=== PATIENT | female | born 1980 | race Caucasian/White ===

== ENCOUNTER 2017-08-29 18:53 | Emergency (ER) | payer MEDICAID ==
[2017-08-29 19:27] VITALS: BP 121/61
--- NOTE | 2017-08-29 19:35 | UC ---
Headache HPI - HPI Summary HPI Summary: 36 YEAR OLD FEMALE PRESENTS WITH SINUS HEADACHE. - History Of Current Complaint Chief Complaint: UCHeadache Stated Complaint: HEADACHE Time Seen by Provider: 08/29/17 19:29 Hx Obtained From: Patient Onset/Duration: Sudden Onset Onset Of Symptoms: Sudden Pain Scale Used: 0-10 Numeric - 5 - Allergies/Home Medications Allergies/Adverse Reactions: Allergies Allergy/AdvReac Type Severity Reaction Status Date / Time Amoxicillin Allergy Rash Verified 08/29/17 19:24 PMH/Surg Hx/FS Hx/Imm Hx - Surgical History Surgical History: Yes Surgery Procedure, Year, and Place: tubal - Social History Alcohol Use: Rare Substance Use Type: None Smoking Status (MU): Never Smoked Tobacco Review of Systems Skin: Negative Eyes: Negative ENT: Negative, Sinus Pain/Tenderness Respiratory: Negative Cardiovascular: Negative Gastrointestinal: Negative Genitourinary: Negative Motor: Negative Neurovascular: Negative Musculoskeletal: Negative Neurological: Headache All Other Systems Reviewed And Are Negative: Yes Physical Exam Triage Information Reviewed: Yes Appearance: Well-Appearing Vital Signs: Initial Vital Signs Temp 36.1 C 08/29/17 19:25 Pulse 64 08/29/17 19:25 Resp 16 08/29/17 19:25 BP 121/61 08/29/17 19:25 Pulse Ox 100 08/29/17 19:25 Eye Exam: Normal ENT: Positive: Nasal congestion Dental Exam: Normal Neck exam: Normal Neck: Positive: 1 Respiratory Exam: Normal Cardiovascular Exam: Normal Abdominal Exam: Normal Musculoskeletal Exam: Normal Neurological Exam: Normal Psychological Exam: Normal Skin Exam: Normal Headache Course/Dx - Differential Dx/Diagnosis Provider Diagnoses: SINUSITIS Discharge - Discharge Plan Condition: Stable Disposition: HOME Prescriptions: Pseudoephedrine HCl [Sudafed Nasal Decongestan] 30 mg PO Q8H #100 tab Patient Education Materials: Acute Headache (ED) Referrals: Mehnaz DESAI,Alexandria Vincent [Nurse Practitioner] -
[2017-08-29] MEDS ORDERED: Acetaminophen TAB* 325 MG PO ONE (19:36)
== END 2017-08-29 20:00 | disposition home or self-care (01) ==
LOC: UCEAST 18:53
DX: J32.9 Chronic sinusitis, unspecified (principal); Z88.3 Allergy status to other anti-infective agents
CPT/HCPCS: 99212; A9270-GY; G0463

== ENCOUNTER 2018-02-11 18:02 | Emergency (ER) | payer MEDICAID ==
[2018-02-11 18:31] VITALS: BP 155/112
--- NOTE | 2018-02-11 19:10 | UC ---
Hip/Pelvis Pain - HPI Summary HPI Summary: Woke in the middle of the night with R hip pain, had a hard time getting comfortable. Got worse while at work today, now ok. Denies any known trauma, no past surgery or injury. Was bowling last night as normal, but felt no pain while bowling. Bearing weight normally. - History Of Current Complaint Chief Complaint: UCLowerExtremity Stated Complaint: HIP PAIN Time Seen by Provider: 02/11/18 18:41 Hx Obtained From: Patient Hx Last Menstrual Period: 01/03/18 ?: No Onset/Duration: Sudden Onset, Lasting Hours Timing: Constant Severity Initially: Moderate Severity Currently: Moderate Pain Intensity: 9 Location: Discrete At: Character Of Pain: Dull, Aching Aggravating Factor(s): Movement, Other - lying on R side Alleviating Factor(s): Rest, Position Associated Signs And Symptoms: Positive: Negative - Allergies/Home Medications Allergies/Adverse Reactions: Allergies Allergy/AdvReac Type Severity Reaction Status Date / Time amoxicillin Allergy Rash Verified 02/11/18 18:31 Home Medications: Home Medications Cyanocobalamin TAB* [Vitamin B12 TAB*] 500 mcg PO DAILY 02/11/18 [History Confirmed 02/11/18] PMH/Surg Hx/FS Hx/Imm Hx Previously Healthy: Yes - Surgical History Surgical History: Yes Surgery Procedure, Year, and Place: tubal ligation - Family History Known Family History: Negative: Blood Disorder - Social History Occupation: Employed Full-time Alcohol Use: Occasionally Substance Use Type: None Smoking Status (MU): Never Smoked Tobacco Review of Systems Constitutional: Negative Skin: Negative Eyes: Negative ENT: Negative Respiratory: Negative Cardiovascular: Negative Gastrointestinal: Negative Genitourinary: Negative Motor: Negative Neurovascular: Negative Musculoskeletal: Decreased ROM - R hip Neurological: Negative Psychological: Negative Is Patient Immunocompromised?: No All Other Systems Reviewed And Are Negative: Yes Physical Exam Triage Information Reviewed: Yes Appearance: Well-Appearing, Pain Distress - mild Vital Signs: Initial Vital Signs Temp 98.8 F 02/11/18 18:28 Pulse 91 02/11/18 18:28 Resp 16 02/11/18 18:28 BP 155/112 02/11/18 18:28 Pulse Ox 100 02/11/18 18:28 Vital Signs Reviewed: Yes Eye Exam: Normal Eyes: Positive: Conjunctiva Clear ENT Exam: Normal ENT: Positive: Normal ENT inspection, Hearing grossly normal, Pharynx normal, TMs normal Neck exam: Normal Neck: Positive: Supple, Nontender, No Lymphadenopathy Respiratory Exam: Normal Respiratory: Positive: Chest non-tender, Lungs clear, Normal breath sounds, No respiratory distress, No accessory muscle use Cardiovascular Exam: Normal Cardiovascular: Positive: RRR, No Murmur Musculoskeletal: Positive: ROM Limited @ - R hip, Other: - pain over R trochanteric tuberosity Neurological Exam: Normal Neurological: Positive: Alert Psychological Exam: Normal Skin Exam: Normal Hip Injury Course/Dx - Differential Dx/Diagnosis Provider Diagnoses: R hip bursitis Discharge - Discharge Plan Condition: Stable Disposition: HOME Patient Education Materials: Hip Bursitis (ED) Forms: *Work Release Referrals: Shruthi Keenan MD [Medical Doctor] - 1 Week Additional Instructions: Start taking ibuprofen 600mg 3 times per day to help with pain while you wait for your orthopedic appointment.
== END 2018-02-11 19:11 | disposition home or self-care (01) ==
LOC: UCEAST 18:02
DX: M70.61 Trochanteric bursitis, right hip (principal); Y93.9 Activity, unspecified; Z88.1 Allergy status to other antibiotic agents
CPT/HCPCS: 99211; G0463

== ENCOUNTER 2019-10-04 15:27 | Emergency (ER) | payer BC, OTHER ==
--- OUTSIDE RECORDS SUMMARY | 2019-10-04 15:36 | XMS REPORT | Summary of Care ---
:1980 Author Organization [facility] Address [address] [address] Care Team Providers Name Role Phone Sabina Santiago MD Primary Care Provider Reason for Referral MRI/CAT/PET Scan (Routine) Status Reason Specialty Diagnoses / Referred By Referred To Procedures Contact Contact Pending Review Diagnoses Neck mass [place], Procedures US SOFT TISSUE HEAD NECK ULTRASOUND GISELLE Bustamante [address] [place] [address] Reason for Visit Reason Comments Sore Throat several weeks of sore throat, coughing, no fever Encounter Details Date Type Department Care Team Description 08/22/2019 Office Visit Dianna Rea, Seasonal allergic rhinitis, unspecified trigger (Primary Dx); Practice [employer] Neck mass [address] [facility] [address] [place] [address] [place] [address] [phone] Allergies Active Allergy Reactions Severity Noted Date Comments Penicillins Rash 10/09/2017 Amoxicillin documented as of this encounter (statuses as of 08/22/2019) Medications Medication Sig Dispensed Refills Start Date End Date Status loratadine Take 1 Tab 30 Tab 0 08/22/2019 Active (CLARITIN,ALAVERT by mouth ) 10 MG Oral DAILY. TabIndications: Seasonal allergic rhinitis, unspecified trigger fluticasone [place] 2 1 Bottle 2 08/22/2019 Active (FLONASE) 50 Sprays in MCG/ACT Nasal nose DAILY. SuspensionIndicat ions: Seasonal allergic rhinitis, unspecified trigger fluticasone [place] 2 1 Each 0 01/06/2019 08/22/2019 Discontinued (FLONASE) 50 Sprays in (Reorder) MCG/ACT Nasal nose DAILY. Suspension documented as of this encounter (statuses as of 08/22/2019) Active Problems Problem Noted Date Mixed hyperlipidemia 10/09/2017 B12 deficiency 10/09/2017 FH: CAD (coronary artery disease) 10/09/2017 documented as of this encounter (statuses as of 08/22/2019) Immunizations Name Administration Dates Next Due Influenza (IM) Preservative Free 08/26/2018, 09/08/2017 TDAP Vaccine 11/26/2011 documented as of this encounter Social History Tobacco Use Types Packs/Day Years Used Date Never Smoker Smokeless Tobacco: Never Used Alcohol Use Drinks/Week oz/Week Comments Yes rarely Physical Activity Answer Date Recorded On average, how many days per week do you engage in moderate 2 days 2018 to strenuous exercise (like walking fast, running, jogging, dancing, swimming, biking, or other activities that cause a light or heavy sweat)? On average, how many minutes do you engage in exercise at Not asked this level? Stress Answer Date Recorded Do you feel stress - tense, restless, nervous, or anxious, Rather much 2018 or unable to sleep at night because your mind is troubled all the time - these days? Sex Assigned at Date Recorded Not on file Job Start Date Occupation Industry Not on file Not on file Not on file Travel History Travel Start Travel End No recent travel history available. documented as of this encounter Last Filed Vital Signs Vital Sign Reading Time Taken Comments Blood Pressure 110/64 08/22/2019 2:22 PM EDT Pulse 76 08/22/2019 2:22 PM EDT Temperature 36.8 08/22/2019 2:22 PM EDT C (98.3 F) Respiratory Rate - - Oxygen Saturation 99% 08/22/2019 2:22 PM EDT Inhaled Oxygen Concentration - - Weight 85.3 kg (188 lb) 08/22/2019 2:22 PM EDT Height 162.6 cm (5' 4") 08/22/2019 2:22 PM EDT Body Mass Index 32.27 08/22/2019 2:22 PM EDT documented in this encounter Patient Instructions Patient InstructionsDianna Mason NP - 08/22/2019 2:20 PM EDTSchedule the ultrasound of your neck - I will call you with anything abnormal, otherwise I will senda letter to you. Use the flonase daily - 2 sprays in each nostril every day. Start loratadine 10 mg daily. Try this for 3-4 weeks, if still having problems, please return. Set up your humidifier - make sure to keep it clean. Salt water gargles, hot tea with lemon. If swelling in throat causes any difficulty breathing, go to the ER. documented in this encounter Progress Notes Dianna Mason NP - 08/22/2019 2:20 PM EDT PATIENT: Carolyn Barroso : 1980 DATE OF SERVICE: 08/22/2019 CHIEF COMPLAINT: Chief Complaint Patient presents with Sore Throat several weeks of sore throat, coughing, no fever Subjective HISTORY OF PRESENT ILLNESS: Carolyn Barroso is a 38-y.o. female. Sore throat since 07/27/19 - thought it was seasonal changes, used her flonase, thought maybe it helped with congestion but sore throat is not going away and she still has cough but this is minimal and usually when her throat feels scratchy, worse in am then during the day, using cough drops. The last couple of days she feels like the back of her tongue hurts when she moves it or sticks it out, today it feels like she has something caught in her throat. Something maybe swollen. Worse on left side.Like something stuck in throat. No fevers, congestion is gone - feels that was allergies -, no myalgia or arthralgias, no constitutional symptoms, no malaise. She used her phone to look in her throat and feels it "doesn't look right". No difficulty swallowing - maybe last night and this am with breakfast a bit more difficult than normal. Not more painful to swallow, food isn't getting stuck. Nothing aggravates, nothing alleviates - more scratchy at night as temperature drops (not related tolaying down) worse in the am as well, when not drinking for awhile it is worse. She had scratchy throat last year and a humidifier helped but last year did not have pain or the swollen spot in throat. She has chronic allergies especially around this time of year when the weather changes. She does not take medication for this, will use flonase sporadically on an as needed basis. Past Medical History: Diagnosis Date Allergic rhinitis Vitamin B12 deficiency Family History Problem Relation Age of Onset No Known Problems Mother No Known Problems Father No Known Problems Daughter No Known Problems Son No Known Problems Brother Heart Paternal Grandfather [place] Heart Paternal Aunt 50 [place] Heart Paternal Uncle 60 [place] Current Outpatient Medications Medication Sig fluticasone (FLONASE) 50 MCG/ACT Nasal Suspension [place] 2 Sprays in nose DAILY. loratadine (CLARITIN,ALAVERT) 10 MG Oral Tab Take 1 Tab by mouth DAILY. No current facility-administered medications for this visit. Allergies Allergen Reactions Penicillins Rash Amoxicillin Social History Socioeconomic History Marital status: Spouse name: Not on file Number of children: Not on file Years of education: Not on file Highest education level: Not on file Occupational History Not on file Social Needs Financial resource strain: Not on file Food insecurity: Worry: Not on file Inability: Not on file Transportation needs: Medical: Not on file Non-medical: Not on file Tobacco Use Smoking status: Never Smoker Smokeless tobacco: Never Used Substance and Sexual Activity Alcohol use: Yes Comment: rarely Drug use: No Sexual activity: Yes Partners: Male control/protection: Surgical Lifestyle Physical activity: Days per week: 2 days Minutes per session: Not on file Stress: Rather much Relationships Social connections: Talks on phone: Not on file Gets together: Not on file Attends scientologist service: Not on file Active member of club or organization: Not on file Attends meetings of clubs or organizations: Not on file Relationship status: Not on file Intimate partner violence: Fear of current or ex partner: Not on file Emotionally abused: Not on file Physically abused: Not on file Forced sexual activity: Not on file Other Topics Concern Back Care Not Asked Bike Helmet Not Asked Blood Transfusions Not Asked Caffeine Concern Not Asked Exercise Not Asked Hobby Hazards Not Asked International Travel Not Asked Service Not Asked Occupational Exposure Not Asked Seat Belt Not Asked Self-Exams Not Asked Sleep Concern Not Asked Special Diet Not Asked Stress Concern Not Asked Weight Concern Not Asked Social History Narrative Works at [employer] Family is in [place] Spent 6 years in [place] Lives with son and daughter. 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 HENT: Positive for sore throat. Negative for congestion and sinus pain. Eyes: Negative for pain and discharge. Respiratory: Positive for cough (minimal). Negative for shortness of breath and wheezing. Cardiovascular: Negative for chest pain, palpitations and leg swelling. Gastrointestinal: Negative for abdominal pain, constipation, diarrhea, nausea and vomiting. Musculoskeletal: Negative for joint pain and myalgias. Neurological: Positive for headaches (sometimes). Objective PHYSICAL EXAM: VITALS: BP 110/64 (BP Location: Left arm, Patient Position: Sitting) | Pulse 76 | Temp 98.3 F(36.8 C) | Ht 5' 4" (1.626 m) | Wt 188 lb (85.3 kg) | SpO2 99% | BMI 32.27 kg/m Body mass index is 32.27 kg/m. Physical Exam Vitals signs and nursing note reviewed. Constitutional: General: She is not in acute distress. Appearance: Normal appearance. She is well-developed. She is not ill- appearing or toxic-appearing. HENT: Right Ear: Tympanic membrane, ear canal and external ear normal. No mastoid tenderness. Tympanic membrane is not erythematous, retracted or bulging. Left Ear: Tympanic membrane, ear canal and external ear normal. No mastoid tenderness. Tympanic membrane is not erythematous, retracted or bulging. Nose: Nose normal. Mouth/Throat: Mouth: Mucous membranes are moist. Pharynx: Oropharynx is clear. Uvula midline. Posterior oropharyngeal erythema present. No pharyngeal swelling, oropharyngeal exudate or uvula swelling. Tonsils: No tonsillar exudate or tonsillar abscesses. Swellin+ on the right. 2+ on the left. Comments: Cobblestoning on pharynx. Small ulcer on left tonsil. Eyes: Conjunctiva/sclera: Conjunctivae normal. Cardiovascular: Rate and Rhythm: Normal rate and regular rhythm. Heart sounds: Normal heart sounds. Pulmonary: Effort: Pulmonary effort is normal. Breath sounds: Normal breath sounds. Lymphadenopathy: Head: Right side of head: No submental, submandibular or tonsillar adenopathy. Left side of head: Submandibular adenopathy present. No submental or tonsillar adenopathy. Cervical: No cervical adenopathy. Right cervical: No superficial cervical adenopathy. Left cervical: No superficial cervical adenopathy. Upper Body: Right upper body: No supraclavicular adenopathy. Left upper body: No supraclavicular adenopathy. Neurological: Mental Status: She is alert. Psychiatric: Behavior: Behavior is cooperative. ASSESSMENT / IMPRESSION: ICD-9-CM ICD-10-CM 1. Seasonal allergic rhinitis, unspecified trigger 477.9 J30.2 loratadine ( CLARITIN,ALAVERT) 10 MG Oral Tab fluticasone (FLONASE) 50 MCG/ACT Nasal Suspension 2. Neck mass 784.2 R22.1 US SOFT TISSUE HEAD NECK ULTRASOUND Plan 1. Neck mass - US SOFT TISSUE HEAD NECK ULTRASOUND; Future 2. Seasonal allergic rhinitis, unspecified trigger - loratadine (CLARITIN,ALAVERT) 10 MG Oral Tab; Take 1 Tab by mouth DAILY. Dispense: 30 Tab; Refill: 0 - fluticasone (FLONASE) 50 MCG/ACT Nasal Suspension; [place] 2 Sprays in nose DAILY. Dispense: 1 Bottle; Refill: 2 She has chronic allergies, untreated, uses flonase as needed only. -Treat allergies daily - flonase and loratadine daily for 3-4 weeks. If symptoms continue at that point, or if they become worse, return for re-eval. May consider ENT referral. Schedule the ultrasound of your neck - I will call you with anything abnormal, otherwise I will senda letter to you. Use the flonase daily - 2 sprays in each nostril every day. Start loratadine 10 mg daily. Try this for 3-4 weeks, if still having problems, please return. Set up your humidifier - make sure to keep it clean. Salt water gargles, hot tea with lemon. If swelling in throat causes any difficulty breathing, go to the ER. Author: Dianna Mason NP 08/22/2019 14:55 documented in this encounter Plan of Treatment Date Type Specialty Care Team Description 08/22/2019 Ancillary Procedure Radiology Neck mass Name Type Priority Associated Diagnoses Order Schedule US SOFT TISSUE HEAD NECK Imaging Routine Neck mass Expected: 08/22/2019, ULTRASOUND Expires: 08/21/2020 Health Maintenance Due Date Last Done Comments INFLUENZA VACCINE (#1) 2019 08/26/2018, 09/08/2017 DEPRESSION SCREENING 12/31/2019 12/31/2018 PAP SMEAR 04/26/2020 04/26/2017 LIPID DISORDER SCREENING 05/06/2024 05/06/2019, 04/06/2017 HPV IMMUNIZATION SERIES Aged Out No longer eligible based on patient's age to complete this topic MENINGOCOCCAL VACCINE IMM Aged Out No longer eligible based on patient's age to complete this topic PNEUMOCOCCAL 0-64 YRS Aged Out No longer eligible based on patient's age to complete this topic documented as of this encounter Results Not on filedocumented in this encounter Visit Diagnoses Diagnosis Seasonal allergic rhinitis, unspecified trigger - Primary Neck mass Swelling, mass, or lump in head and neck documented in this encounter Insurance Payer Benefit Plan / Subscriber ID Effective Dates Phone Address Type Group BCBS NATIONAL BCBS NATIONAL xxxxxxxxxxxxxxx 2018-Prese Blue nt Cross/Blue Shield documented as of this encounter
[2019-10-04 15:41] VITALS: BP 128/88
--- NOTE | 2019-10-04 15:55 | UC ---
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 When walking it improves but when sitting for a length of time, it is more sore and stiff. No specific injury. - History of Current Complaint Chief Complaint: UCLowerExtremity Stated Complaint: LEFT KNEE PAIN Time Seen by Provider: 10/04/19 15:35 Hx Obtained From: Patient Hx Last Menstrual Period: middle of august ?: No Onset/Duration: Gradual Onset Severity Initially: Mild Severity Currently: Mild Pain Intensity: 3 Character: Dull, Aching, Stiffness Aggravating Factor(s): Other - Prolonged sitting and then getting up and walking. Alleviating Factor(s): Rest, Nothing - Improves with walking. Associated Signs And Symptoms: Positive: Negative Able to Bear Weight: Yes - Allergies/Home Medications Allergies/Adverse Reactions: Allergies Allergy/AdvReac Type Severity Reaction Status Date / Time amoxicillin Allergy Rash Verified 10/04/19 15:41 Home Medications: Home Medications Fluticasone NASAL SPRAY 50MCG* [Flonase NASAL SPRAY 50MCG*] 2 spray BOTH NARES DAILY 10/04/19 [History Confirmed 10/04/19] Loratadine [Claritin 10 MG CAP] 10 mg PO DAILY 10/04/19 [History Confirmed 10/04] PMH/Surg Hx/FS Hx/Imm Hx Previously Healthy: Yes - Surgical History Surgical History: Yes Surgery Procedure, Year, and Place: tubal ligation 2005 - Family History Known Family History: Positive: Non-Contributory Negative: Blood Disorder Family History: Father: skin [place] - Social History Occupation: Employed Full-time Alcohol Use: Rare Substance Use Type: None Smoking Status (MU): Never Smoked Tobacco Review of Systems All Other Systems Reviewed And Are Negative: Yes Musculoskeletal: Positive: Other: - Intermittent pain more after sitting for a long time and then getting up. Pain improves with walking. Is Patient Immunocompromised?: No Physical Exam Triage Information Reviewed: Yes Appearance: Well-Appearing, No Pain Distress, Well-Nourished Vital Signs: Initial Vital Signs Temp 99.2 F 10/04/19 15:36 Pulse 80 10/04/19 15:36 Resp 15 10/04/19 15:36 BP 128/88 10/04/19 15:36 Pulse Ox 100 10/04/19 15:36 Vital Signs Reviewed: Yes Musculoskeletal: Positive: Strength Intact, ROM Intact, No Edema, Other: - No swelling, erythema, deformity or bruising. Full ROM, Patellar and knee ligaments intact, able to lift leg up off table without difficulty. Non-tender on palpation. Neurological: Positive: Alert, Muscle Tone Normal Psychological Exam: Normal Skin Exam: Normal Knee Pain Course/Dx - Course Course Of Treatment: Left Knee X-ray: FINDINGS: BONE DENSITY: Normal. BONES: There is no displaced fracture. JOINTS: There is minimal medial compartment joint space narrowing and osteophyte formation. There is no suprapatellar joint effusion or lipohemarthrosis. ALIGNMENT: There is no dislocation. SOFT TISSUES: Unremarkable. OTHER FINDINGS: None. IMPRESSION: NO ACUTE OSSEOUS INJURY. IF SYMPTOMS PERSIST, RECOMMEND REPEAT IMAGING. Will give a knee immobilizer for comfort and follow up with orthopedist in 4-5 days if no improvement. - Differential Dx/Diagnosis Provider Diagnosis: Strain of left knee Discharge ED - Sign-Out/Discharge Documenting (check all that apply): Patient Departure All imaging exams completed and their final reports reviewed: Yes - Discharge Plan Condition: Good Disposition: HOME Patient Education Materials: Knee Pain (ED) Referrals: Sabina Santiago MD [Primary Care Provider] - Shruthi Keenan MD [Medical Doctor] - Additional Instructions: Apply heat to the sore area as much as possible,avoid movement that cause pain. Take ibup[rofen 600 mg every 8 hours. Follow up with orthopedist if no improvement in 4-5 days. - Billing Disposition and Condition Condition: GOOD Disposition: Home - Attestation Statements Provider Attestation: Per institutional requirements, I have reviewed the chart, however, I was not consulted specifically or made aware of this patient by the midlevel provider. I did not personally evaluate, interact with , or disposition this patient.
== END 2019-10-04 16:35 | disposition home or self-care (01) ==
LOC: UCEAST 15:27
DX: S86.812A Strain of other muscle(s) and tendon(s) at lower leg level, left leg, initial encounter (principal); Z88.0 Allergy status to penicillin; X58.XXXA Exposure to other specified factors, initial encounter; Y92.9 Unspecified place or not applicable
CPT/HCPCS: 99212; G0463

== ENCOUNTER 2020-03-14 16:30 | Emergency (ER) | payer BC ==
--- NOTE | 2020-03-14 16:46 | UC ---
Laceration HPI - HPI Summary HPI Summary: Patient is 39 year old female , who presents today to the urgent care with left finger injury today, half hour [employer]. She reports that sliced her left index finger at 1600 on poultry cutter. bleeding controlled with pressure. Had tetanus shot 2019 - History Of Current Complaint Chief Complaint: UCLaceration Stated Complaint: FINGER INJURY Time Seen by Provider: 03/14/20 16:33 Hx Obtained From: Patient Hx Last Menstrual Period: tubal Pain Intensity: 5 - Allergies/Home Medications Allergies/Adverse Reactions: Allergies Allergy/AdvReac Type Severity Reaction Status Date / Time amoxicillin Allergy Rash Verified 03/14/20 16:38 Home Medications: Home Medications Ibuprofen TAB* [Motrin TAB* 400 MG] 400 mg PO Q6H PRN 05/16/18 [History Confirmed 03/14/20] Fluticasone NASAL SPRAY 50MCG* [Flonase NASAL SPRAY 50MCG*] 2 spray BOTH NARES DAILY 10/04/19 [History Confirmed 03/14/20] Loratadine [Claritin 10 MG CAP] 10 mg PO DAILY PRN 10/04/19 [History Confirmed 03/14/20] PMH/Surg Hx/FS Hx/Imm Hx - Additional Past Medical History Additional PMH: Past Medical History : Heart murmur, low B12, right heel bone spur. Past Surgical History: Tubal ligation 2005 Family History : None Social History : Rare alcohol, non smoker, no drug use. works in [employer] Previously Healthy: Yes - Surgical History Surgical History: Yes Surgery Procedure, Year, and Place: tubal ligation 2005 - Family History Known Family History: Positive: None, Non-Contributory Negative: Blood Disorder Family History: Father: skin CA - Social History Alcohol Use: Rare Substance Use Type: None Smoking Status (MU): Never Smoked Tobacco - Immunization History Most Recent Tetanus Shot: 2019 Review of Systems All Other Systems Reviewed And Are Negative: Yes Constitutional: Positive: Negative Skin: Positive: Other - skin flap laceration Eyes: Positive: Negative ENT: Positive: Negative Respiratory: Positive: Negative Cardiovascular: Positive: Negative Gastrointestinal: Positive: Negative Genitourinary: Positive: Negative Motor: Positive: Negative Neurovascular: Positive: Negative Musculoskeletal: Positive: Negative Neurological/Mental Status: Positive: Negative Psychological: Positive: Negative Is Patient Immunocompromised?: No Physical Exam - Summary Physical Exam Summary: Vital Signs Reviewed: Yes A+Ox3, no distress Eyes: Conjunctiva Clear ENT: Hearing grossly normal neck: supple Respiratory: Positive: No respiratory distress, No accessory muscle use Cardiovascular: skin color reflect adequate perfusion Musculoskeletal Exam: MULTANI x 4 without difficulty Neurological: Positive: Alert, ambulatory without difficulty Psychological: Positive: Normal Response To Family Skin: Positive: Left index finger distal phalanx v- shaped superficial flap laceration were noted. Hemostasis controlled. Triage Information Reviewed: Yes Vital Signs Reviewed: Yes Images Hands: 1 - v shaped skin flap laceration Laceration Repair - Laceration Repair 1 Procedure Summary: Procedure note: Left index finger skin flap laceration wound repair: Consent obtained, under sterile condition the flap was closed using skin adhesive after which it was covered with Steri-Strips using benzoin and tube gauze applied by nursing. Patient tolerated the procedure well without any complications. Postprocedure instructions discussed with patient. Laceration Size After Repair: Length (cm) - 0.5 cm, Width (mm) - 3mm, Depth (mm ) - 1mm Contamination/FB Removal: no foreign body identified Cleansing Completed Via Routine Prep: Yes Closure Material: Skin Adhesive, SteriStrips Discharge ED - Sign-Out/Discharge Documenting (check all that apply): Patient Departure All imaging exams completed and their final reports reviewed: No Studies - Discharge Plan Condition: Stable Disposition: HOME Patient Education Materials: Finger Laceration (ED), Skin Adhesive Care (ED) Referrals: Sabina Santiago MD [Primary Care Provider] - If Needed Additional Instructions: Please take ibuprofen as needed for pain control. Monitor for any signs of infection as discussed. Steri-Strips will fall off in 5-7 days. Your blood pressure slightly high ( prehypertensive range) in Urgent care today , plan follow up with PCP for better control Return to Urgent care / ER if symptoms get worse. . - Billing Disposition and Condition Condition: STABLE Disposition: Home
[2020-03-14 16:48] VITALS: BP 122/76
[2020-03-14] MEDS ORDERED: Benzoin Compound STICK TOPICAL ONE (16:53)
== END 2020-03-14 17:26 | disposition home or self-care (01) ==
LOC: UCEAST 16:30
DX: S61.211A Laceration without foreign body of left index finger without damage to nail, initial encounter (principal); W27.8XXA Contact with other nonpowered hand tool, initial encounter; Y93.89 Activity, other specified; Y92.9 Unspecified place or not applicable; Z88.0 Allergy status to penicillin
CPT/HCPCS: 12001; 99211; G0463